=== PATIENT | female | born 1940 | race Caucasian/White ===

== ENCOUNTER 2017-03-11 08:10 | Outpatient (CLI) ==
[2017-03-11 09:35] LABS: FERRITIN 43.4 ng/mL (4.63-204.00)
== END 2017-03-11 08:11 | disposition home or self-care (01) ==
LOC: LAB 08:10
PROVIDERS: ATTEND Physician Assistant
DX: L65.9 Nonscarring hair loss, unspecified (principal)
CPT/HCPCS: 36415; 82728; 83540; 83550; 84443